=== PATIENT | male | born 1965 | race Caucasian/White ===

== ENCOUNTER → 2018-05-31 | Outpatient (CLI) | payer OTHER | END | disposition home or self-care (01) | LOC: RAD 08:46 | DX: M46.92 Unspecified inflammatory spondylopathy, cervical region (principal) ==

== ENCOUNTER 2023-05-31 08:43 | Outpatient (CLI) | payer OTHER | END 2023-05-31 08:52 | disposition home or self-care (01) | LOC: SONOGRAMA 08:43 | PROVIDERS: ATTEND Urology | DX: N41.0 Acute prostatitis (principal) ==

== ENCOUNTER 2023-11-03 10:21 | Outpatient (CLI) | payer OTHER | END 2023-11-03 10:28 | disposition home or self-care (01) | LOC: MRI 10:21 | DX: S83.241A Other tear of medial meniscus, current injury, right knee, initial encounter (principal); M23.611 Other spontaneous disruption of anterior cruciate ligament of right knee | CPT/HCPCS: 73721 ==

== ENCOUNTER 2023-11-10 09:46 | Outpatient (CLI) | payer OTHER | END 2023-11-10 09:52 | disposition home or self-care (01) | LOC: RAD 09:46 | PROVIDERS: ATTEND Orthopaedic Surgery | DX: R07.9 Chest pain, unspecified (principal); M50.90 Cervical disc disorder, unspecified, unspecified cervical region ==

== ENCOUNTER 2024-12-05 08:09 | Outpatient (CLI) | payer OTHER | END 2024-12-05 08:15 | disposition home or self-care (01) | LOC: RAD 08:09 | PROVIDERS: ATTEND General Practice | DX: S22.41XA Multiple fractures of ribs, right side, initial encounter for closed fracture (principal) ==